=== PATIENT | female | born 1955 | race Caucasian/White ===

== ENCOUNTER 2020-02-28 09:53 | Emergency (ER) | payer OTHER ==
[2020-02-28] MEDS: Fluorescein 1 MG Ophth Strip EYELF ONE (11:44)
[2020-02-28] MEDS: Proparacaine 0.5% Ophth Soln 15 ML Bottle EYELF PRN (11:44)
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
== END 2020-02-28 12:23 | disposition home or self-care (01) ==
LOC: VM.ED 09:53
DX: S05.8X1A Other injuries of right eye and orbit, initial encounter (principal); X58.XXXA Exposure to other specified factors, initial encounter; Y99.0 Civilian activity done for income or pay
CPT/HCPCS: 99283